=== PATIENT | female | born 1950 | race Caucasian/White ===

== ENCOUNTER 2020-04-07 18:07 | Observation (INO) | payer MEDICARE, BC ==
[~2020-04-07] VITALS: Ht 172.7 cm; Wt 91.8 kg
[~2020-04-07 18:07] MED LIST: BUPR150T7 PO; CARB100T3 PO; CARB200T13 PO; DULO30CA2 PO; HYDR-3241 PO; HYDR25TA6 PO; LAMO100T5 PO; LAMO100T8 PO; LISI-170 PO; METO50TA82 PO; MORP60TA34 PO; ONDA4TAB13 PO; OXYC10TA6 PO; OXYC5TAB98 PO; PREG150C PO; QUET50TA5 PO; SERT100T PO
[2020-04-07] MEDS ORDERED: POLYETHYLENE GLYCOL 17 GM PACKET NG ONE (18:30)
[2020-04-07] MEDS ORDERED: PLEASE ENTER HEIGHT AND WEIGHT MC SCH (18:30)
[2020-04-07] MEDS ORDERED: HEPARIN 5,000 UNITS/ML, 1ML SQ SCH (18:30)
[2020-04-07] MEDS ORDERED: ACETAMINOPHEN 325 MG TABLET PO PRN (18:30)
[2020-04-07] MEDS ORDERED: NITROGLYCERIN 0.4 MG/SPRAY SL PRN (18:30)
[2020-04-07] MEDS ORDERED: BISACODYL 10 MG SUPP PR PRN (18:30)
[2020-04-07 19:07] LABS: ANION GAP 5 mmol/L (5-15); CALCIUM 8.6 mg/dL (8.5-10.1); CHLORIDE 107 mmol/L (98-107)
[2020-04-07 19:12] LABS: CHOL/HDL RATIO 4.1; CHOLESTEROL, TOTAL 145 mg/dL (140-239); CREATININE 0.94 mg/dL (0.55-1.02); HDL CHOL % 24 % (28-40); HDL CHOLESTEROL (DIRECT) 35 mg/dL (40-60); LDL CHOLESTEROL,CALCULATED 79 mg/dL (54-169); LDL/HDL RATIO 2.3 (0.5-3.0); TRIGLYCERIDES 153 mg/dL (50-200); TROPONIN I 0.034 ng/mL (0.000-0.045); VLDL CHOLESTEROL 31 mg/dL (0-25)
[2020-04-07 19:24] VITALS: BP 143/72
[2020-04-07] MEDS ORDERED: QUETIAPINE 25MG TABLET PO SCH (21:00)
[2020-04-07] MEDS: LAMOTRIGINE 100 MG TABLET PO SCH (21:11)
[2020-04-07] MEDS: PREGABALIN 150 MG CAPSULE PO SCH (21:11)
[2020-04-07] MEDS: ENOXAPARIN 40 MG/0.4 ML SQ SCH (21:12)
[2020-04-07] MEDS: SODIUM CHLORIDE FLUSH 10ML SYR IVF SCH (22:10)
[2020-04-08] MEDS: morphine SULFATE 10 MG/ML, 1ML IVPush PRN ×2 (00:38→09:32)
[2020-04-08 01:03] VITALS: BP 112/74
[2020-04-08 01:06] LABS: TROPONIN I 0.018 ng/mL (0.000-0.045)
[2020-04-08 05:41] LABS: ALANINE AMINOTRANSFERASE 15 U/L (12-78); ALBUMIN 2.8 g/dL (3.4-5.0); ANION GAP 6 mmol/L (5-15); CALCIUM 8.4 mg/dL (8.5-10.1); CHLORIDE 108 mmol/L (98-107)
[2020-04-08 05:46] LABS: ALKALINE PHOSPHATASE 67 U/L (45-117); BILIRUBIN,TOTAL 0.3 mg/dL (0.2-1.0); CREATININE 0.85 mg/dL (0.55-1.02); TOTAL PROTEIN 5.8 g/dL (6.4-8.2); TROPONIN I 0.033 ng/mL (0.000-0.045)
[2020-04-08] MEDS ORDERED: REGADENOSON 0.4 MG/5 ML SYRINGE ONE (08:18)
[2020-04-08 08:19] LABS: BASOPHILS % (AUTO) 2 % (0-1); EOSINOPHILS % (AUTO) 5 % (1-7); LYMPHOCYTES % (AUTO) 38 % (22-44); MEAN CORPUSCULAR HEMOGLOBIN 30.1 pg (27.0-34.8); MEAN CORPUSCULAR HGB CONC 33.3 g/dL (32.4-35.8); MEAN PLATELET VOLUME 8.9 fL (7.4-10.4); MONOCYTES % (AUTO) 12 % (2-9); NEUTROPHILS % (AUTO) 43 % (42-75); PLATELET COUNT 242 x10^3/uL (130-400); RED BLOOD COUNT 4.36 x10^6/uL (3.82-5.3); RED CELL DISTRIBUTION WIDTH 14.9 % (9.6-15.2)
[2020-04-08 08:30] LABS: MD NO
[2020-04-08] MEDS ORDERED: LISINOPRIL 20 MG TABLET PO SCH (09:00)
[2020-04-08] MEDS ORDERED: SERTRALINE 100MG TABLET PO SCH (09:00)
[2020-04-08 09:04] VITALS: BP 146/87
[2020-04-08] MEDS: PREGABALIN 150 MG CAPSULE PO SCH (09:31)
[2020-04-08] MEDS: LAMOTRIGINE 100 MG TABLET PO SCH (09:31)
[2020-04-08] MEDS: ENOXAPARIN 40 MG/0.4 ML SQ SCH (09:33)
[2020-04-08] MEDS: SODIUM CHLORIDE FLUSH 10ML SYR IVF SCH (09:40)
[2020-04-08] MEDS ORDERED: MORPHINE SULFATE 4 MG/ML, 1ML IVPush PRN (12:00)
[2020-04-08] MEDS ORDERED: POTASSIUM CHLORIDE 20 MEQ TAB.ER.PRT PO ONE (12:00)
[2020-04-08 12:36] LABS: TROPONIN I 0.031 ng/mL (0.000-0.045)
[2020-04-08 14:56] VITALS: BP 136/63
[2020-04-08 18:43] LABS: TROPONIN I 0.031 ng/mL (0.000-0.045)
[2020-04-08] MEDS ORDERED: ATORVASTATIN 10 MG TABLET PO SCH (21:00)
[2020-04-09] MEDS ORDERED: ASPIRIN 81 MG TABLET CHEW PO SCH (09:00)
== END 2020-04-08 20:19 ==
LOC: 5SO 18:07 → INTOOBSV 18:07
PROVIDERS: ADMIT Hospitalist; ATTEND Internal Medicine
DX: R07.89 Other chest pain (principal); I10 Essential (primary) hypertension; I25.119 Atherosclerotic heart disease of native coronary artery with unspecified angina pectoris; I45.2 Bifascicular block; K59.00 Constipation, unspecified; G89.29 Other chronic pain; F41.8 Other specified anxiety disorders; F11.20 Opioid dependence, uncomplicated; Z79.899 Other long term (current) drug therapy
CPT/HCPCS: 36415; 72192; 73502; 78452; 80048; 80053; 80061; 83735; 84484; 85025; 93005; 93017; 93306; 96372; 96374; 96376; A9502; G0378; J1650; J2270; J2785